=== PATIENT | female | born 1990 | race Caucasian/White ===

== ENCOUNTER 2017-09-01 13:28 | Emergency (ER) | payer BC, MEDICAID ==
[~2017-09-01] VITALS: Ht 172.7 cm; Wt 79.5 kg
[~2017-09-01 13:28] MED LIST: IBUP600 PO; PERI8.6T PO; PRENCAP6 PO
[2017-09-01 13:32] VITALS: BP 135/98; PULSE 92; RESP 18; TEMP 99.1; O2SAT 100
[2017-09-01 14:51] VITALS: BP 145/84; PULSE 74; RESP 16; O2SAT 97
[2017-09-01] MEDS ORDERED: NAPROXEN 500 MG TAB PO ONE (15:15)
[2017-09-01 15:19] LABS: BASOPHIL % 0.7 % (0.0-2.0); EOSINOPHIL # 0.4 TH/MM3 (0-0.4); EOSINOPHIL % 5.9 % (0.0-4.0); HEMATOCRIT 39.9 % (35.0-46.0); HEMOGLOBIN 13.9 GM/DL (11.6-15.3); LYMPH % 30.4 % (9.0-44.0); LYMPHOCYTE # 2.2 TH/MM3 (1.0-4.8); MEAN CELL VOLUME 94.6 FL (80.0-100.0); MEAN CORPUSCULAR HGB CONC 34.9 % (32.0-36.0); MEAN PLATELET VOLUME 7.6 FL (7.0-11.0); MONO % 7.4 % (0.0-8.0); MONOCYTE # 0.5 TH/MM3 (0-0.9); NEUT % 55.6 % (16.0-70.0); PLATELET COUNT 275 TH/MM3 (150-450); RED BLOOD COUNT 4.21 MIL/MM3 (4.00-5.30); RED CELL DISTRIBUTION WIDTH 12.6 % (11.6-17.2); WHITE BLOOD COUNT 7.1 TH/MM3 (4.0-11.0)
[2017-09-01 15:27] LABS: BILIRUBIN, URINE NEG (NEG); BLOOD, URINE NEG (NEG); GLUCOSE,URINE NEG (NEG); KETONE, URINE NEG (NEG); NITRITE,URINE NEG (NEG); PH, URINE 5.5 (5.0-8.5); SQUAMOUS EPITHELIAL CELL URINE <1 /hpf (0-5); URINE COLOR LIGHT-YELLOW (YELLW/STRAW); URINE LEUKOCYTE ESTERASE NEG (NEG)
[2017-09-01 15:46] LABS: AST (GOT) 10 U/L (15-37); BICARBONATE 27.2 MEQ/L (21.0-32.0); BLOOD UREA NITROGEN 10 MG/DL (7-18); CALCIUM 8.8 MG/DL (8.5-10.1); CHLORIDE 105 MEQ/L (98-107); CREATININE 0.78 MG/DL (0.50-1.00); GLOMERULAR FILTRATION RATE 87 ML/MIN (>89); GLUCOSE,RANDOM 86 MG/DL (74-106); LIPASE 121 U/L (73-393); SODIUM (NA) 139 MEQ/L (136-145)
--- NOTE | 2017-09-01 15:51 | PD ---
HPI Chief Complaint: Abdominal Pain Time Seen by Provider: 14:59 Travel History International Travel<30 days: No Contact w/Intl Traveler<30days: No Traveled to known affect area: No History of Present Illness HPI This is a 27-year-old female who presents to the emergency department with lower abdominal discomfort that started this morning at 5 AM waking her from sleep, sharp, constant, moderate severity with no associated fevers or chills. She denies any vaginal discharge. She had her normal menstrual cycle 3 weeks ago. She does have an IUD. She also has an umbilical hernia. She denies any vomiting or diarrhea. She has had ruptured ovarian cyst before and this feels similar but she was concerned because the pain was so severe so she came to the emergency department. [facility] Past Medical History Medical History: Denies Significant Hx Tetanus Vaccination: Unknown ?: Not LMP: 2-3 WEEKS AGO : 2 Para: 2 Past Surgical History Oral Surgery: Yes (WISDOM TEETH) Social History Alcohol Use: No Tobacco Use: Yes Substance Use: No Allergies-Medications (Allergen,Severity, Reaction): Coded Allergies: No Known Allergies (Unverified Adverse Reaction, Unknown, 09/01/17) Reported Meds & Prescriptions Reported Meds & Active Scripts Active No Active Prescriptions or Reported Medications Review of Systems Except as stated in HPI: all other systems reviewed are Neg Physical Exam Narrative GENERAL:Well appearing, no acute distress SKIN: Focused skin assessment warm and dry. HEAD: Atraumatic. Normocephalic. EYES: Pupils equal and round. No injection or drainage. ENT: Moist mucous membranes NECK: Trachea midline. CARDIOVASCULAR: Regular rate and rhythm. No murmur appreciated. RESPIRATORY: Clear to auscultation. Breath sounds equal bilaterally. GASTROINTESTINAL: Abdomen soft, tender to palpation in the lower abdomen with no rebound or guarding. More on the right than the left DIRECTOR OF SAFETY: Scant yellow vaginal discharge, IUD strings are palpable and the cervix with no cervical motion tenderness. MUSCULOSKELETAL: No obvious deformities. NEUROLOGICAL: Awake and alert. No obvious cranial nerve deficits. Moving all extremities. PSYCHIATRIC: Appropriate mood and affect; insight and judgment normal. Data Data Last Documented VS Vital Signs Date Time Temp Pulse Resp B/P (MAP) Pulse Ox O2 Delivery O2 Flow Rate FiO2 09/01/17 14:51 74 16 145/84 (104) 97 Room Air 09/01/17 13:32 99.1 Orders Orders Complete Blood Count With Diff (09/01/17 13:59) Comprehensive Metabolic Panel (09/01/17 13:59) Lipase (09/01/17 13:59) Urinalysis - C+S If Indicated (09/01/17 13:59) Ed Urine Pregnancytest Poc (09/01/17 13:59) Us Pelvis Comp W Dop Transvag (09/01/17 ) Naproxen (Naprosyn) (09/01/17 15:15) Wet Prep Profile (09/01/17 15:17) Gc And Chlamydia Pcr (09/01/17 15:17) Labs Laboratory Tests Test 09/01/17 14:40 09/01/17 15:22 White Blood Count 7.1 TH/MM3 Red Blood Count 4.21 MIL/MM3 Hemoglobin 13.9 GM/DL Hematocrit 39.9 % Mean Corpuscular Volume 94.6 FL Mean Corpuscular Hemoglobin 33.0 PG Mean Corpuscular Hemoglobin Concent 34.9 % Red Cell Distribution Width 12.6 % Platelet Count 275 TH/MM3 Mean Platelet Volume 7.6 FL Neutrophils (%) (Auto) 55.6 % Lymphocytes (%) (Auto) 30.4 % Monocytes (%) (Auto) 7.4 % Eosinophils (%) (Auto) 5.9 % Basophils (%) (Auto) 0.7 % Neutrophils # (Auto) 4.0 TH/MM3 Lymphocytes # (Auto) 2.2 TH/MM3 Monocytes # (Auto) 0.5 TH/MM3 Eosinophils # (Auto) 0.4 TH/MM3 Basophils # (Auto) 0.0 TH/MM3 CBC Comment DIFF FINAL Differential Comment Urine Color LIGHT-YELLOW Urine Turbidity CLEAR Urine pH 5.5 Urine Specific [place] 1.009 Urine Protein NEG mg/dL Urine Glucose (UA) NEG mg/dL Urine Ketones NEG mg/dL Urine Occult Blood NEG Urine Nitrite NEG Urine Bilirubin NEG Urine Urobilinogen LESS THAN 2.0 MG/DL Urine Leukocyte Esterase NEG Urine WBC LESS THAN 1 /hpf Urine Squamous Epithelial Cells <1 /hpf Microscopic Urinalysis Comment CULT NOT INDICATED Blood Urea Nitrogen 10 MG/DL Creatinine 0.78 MG/DL Random Glucose 86 MG/DL Total Protein 7.5 GM/DL Albumin 4.0 GM/DL Calcium Level 8.8 MG/DL Alkaline Phosphatase 49 U/L Aspartate Amino Transf (AST/SGOT) 10 U/L Alanine Aminotransferase (ALT/SGPT) 13 U/L Total Bilirubin 0.4 MG/DL Sodium Level 139 MEQ/L Potassium Level 4.1 MEQ/L Chloride Level 105 MEQ/L Carbon Dioxide Level 27.2 MEQ/L Anion Gap 7 MEQ/L Estimat Glomerular Filtration Rate 87 ML/MIN Lipase 121 U/L Clue Cells (Wet Prep) NONE SEEN Vaginal Trichomonas (Wet Prep) NONE SEEN Vaginal Yeast (Wet Prep) NONE SEEN MDM Medical Decision Making Medical Screen Exam Complete: Yes Emergency Medical Condition: Yes Interpretation(s) Temperature is 99.1, mild tachycardia No leukocytosis Electrolytes are reassuring Lipase is normal Urinalysis is negative for infection Wet prep is normal Ultrasound demonstrates bilateral small cysts with IUD in good placement Differential Diagnosis Ovarian cyst rupture, ovarian torsion, IUD migration, appendicitis, hernia incarceration Narrative Course This is an 27-year-old female who presents to the emergency department with onset fairly acute of lower abdominal discomfort. Her clinical history is consistent with an ovarian cyst rupture. She does have an IUD. Labs were obtained which are reassuring with no leukocytosis and the patient is afebrile and has had no vomiting so I doubt appendicitis. Pelvic exam demonstrates strings in normal position with no evidence of infection. Ultrasound demonstrates ovarian cysts bilaterally. I suspect the patient had an ovarian cyst rupture. 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 Diagnosis Primary Impression: Ovarian cyst Qualified Codes: N83.201 - Unspecified ovarian cyst, right side; N83.202 - Unspecified ovarian cyst, left side Patient Instructions: General Instructions Additional Instructions: If you develop severe or worsening abdominal pain, fever>100.4, persistent vomiting or inability to eat or drink return to the emergency department immediately. Follow up with your primary care physician in 1-2 days for a check-up. Med/Other Pt SpecificInfo: Prescription(s) given Scripts Naproxen (Naproxen) 500 Mg Tab 500 MG PO BID Y for PAIN SCALE 4 TO 10, #20 TAB 0 Refills Prov: Vale Andino MD 09/01/17 Disposition: 01 DISCHARGE HOME Condition: Stable Vale Andino MD Sep 01, 2017 15:51
[2017-09-01 15:55] LABS: ALKALINE PHOSPHATASE 49 U/L (45-117); ALT (GPT) 13 U/L (10-53); TOTAL BILIRUBIN ADULT 0.4 MG/DL (0.2-1.0); TOTAL PROTEIN 7.5 GM/DL (6.4-8.2)
[2017-09-01] MEDS ORDERED: NAPR500T2 PO (16:20)
[2017-09-01 16:32] VITALS: BP 145/79
--- NOTE | 2017-09-01 16:38 | RADRPT ---
EXAM DATE/TIME: 09/01/2017 14:49 [place] COMPARISON: No previous studies available for comparison. INDICATIONS : Pelvic pain. MEDICAL HISTORY : Tobacco use. SURGICAL HISTORY : [place] teeth removed. ENCOUNTER: Initial ACUITY: 2 days PAIN SCORE: 8/10 LOCATION: Bilateral pelvis MEASUREMENTS: UTERUS: 9.1 x 5.6 x 4.2 cm ENDOMETRIAL STRIPE: 10 mm RIGHT OVARY: 4.4 x 3.2 x 2.8 cm LEFT OVARY: 3.7 x 3.2 x 2.2 cm FINDINGS: UTERUS: The myometrium has homogeneous echotexture without mass. Intrauterine device in good position. RIGHT OVARY: Ovary contains no mass or significant cystic lesion. Normal flow. Dominant follicle measures 8 mm. LEFT OVARY: Minimally complex cyst with septations measures 13 x 14 x 13 mm Normal flow. MISCELLANEOUS: No free fluid. CONCLUSION: 1. Intrauterine device in good position. 2. Normal flow to each ovary. 3. Minimally complex left ovarian cyst. Mj Metcalf MD on September 01, 2017 at 16:25 Board Certified Radiologist. This report was verified electronically.
== END 2017-09-01 16:33 | disposition home or self-care (01) ==
LOC: NEPD 13:28
DX: N83.201 Unspecified ovarian cyst, right side (principal); N83.202 Unspecified ovarian cyst, left side; Z72.0 Tobacco use
CPT/HCPCS: 76856; 80053; 81001; 83690; 84703; 85025; 87210; 87491; 87591; 93975; 99284